=== PATIENT | male | born 1985 | race Two or more races ===

== ENCOUNTER 2021-05-09 11:07 | Emergency (ER) | payer SELFPAY ==
[~2021-05-09] VITALS: Ht 172.7 cm; Wt 99.8 kg
[2021-05-09] MEDS ORDERED: LIDOCAINE 1% HCL (LOCAL ANESTH.) INJ 20ML MDV ONE (11:55)
[2021-05-09 11:59] VITALS: BP 118/78
[2021-05-09] MEDS ORDERED: CEPH-509 PO (13:10)
[2021-05-09] MEDS ORDERED: IBUP800T27 PO (13:10)
[2021-05-09 15:16] LABS: Hepatitis B Surface Antibody Positive (Negative)
== END 2021-05-09 14:14 | disposition home or self-care (01) ==
LOC: ER 11:07 → EDBD 11:07 → ER 14:10
DX: S52.501A Unspecified fracture of the lower end of right radius, initial encounter for closed fracture (principal); S52.614A Nondisplaced fracture of right ulna styloid process, initial encounter for closed fracture; S61.011A Laceration without foreign body of right thumb without damage to nail, initial encounter; V43.52XA Car driver injured in collision with other type car in traffic accident, initial encounter; Y93.89 Activity, other specified; Y92.410 Unspecified street and highway as the place of occurrence of the external cause; Y99.8 Other external cause status
CPT/HCPCS: 12002; 36415; 73130; 86703; 86706; 86803; 87340; 99284; J2001

== ENCOUNTER 2021-12-11 17:34 | Inpatient (IN) | payer SELFPAY ==
[~2021-12-11] VITALS: Ht 175.3 cm; Wt 115.1 kg
[~2021-12-11 17:34] MED LIST: CEPH-509 PO; IBUP800T27 PO
[2021-12-11 19:23] LABS: Basophils # (auto) 0.1 10 ^3/uL (0-0.2); Eosinophils # (auto) 0.1 10 ^3/uL (0-0.8); Hematocrit 37.7 % (41.0-53.0); Hemoglobin 12.7 g/dL (13.5-17.5); Lymphocytes # (auto) 1.9 10 ^3/uL (0.4-5.4); Mean Corpuscular Hemoglobin 36.3 pg (28.0-32.0); Mean Corpuscular Hgb Conc. 33.7 g/dL (32.0-36.0); Monocytes # (auto) 0.9 10 ^3/uL (0-1.3)
[2021-12-11 19:25] LABS: Basophils % (auto) 1.4 % (0.0-2.0); Eosinophils % (auto) 1.4 % (0.0-7.0); Lymphocytes % (auto) 23.1 % (10.0-50.0); Mean Corpuscular Volume 107.8 fL (80.0-100.0); Monocytes % (auto) 11.6 % (0.0-12.0); Neutrophils # (auto) 5.1 10 ^3/uL (1.6-8.6); Neutrophils % (auto) 62.5 % (37.0-80.0); Nucleated Red Blood Cells % 0.1 %; Red Cell Distribution Width 15.3 % (11.8-14.3); White Blood Cell 8.2 10^3/uL (4.4-10.8)
[2021-12-11 19:40] LABS: INR 1.44 (0.9-1.15); Partial Thromboplastin Time 38.9 sec (24.6-33.4)
[2021-12-11 19:51] LABS: Albumin 3.2 g/dL (3.4-5.0); Calcium 8.1 mg/dL (8.5-10.1); Potassium 3.4 mmol/L (3.5-5.1)
[2021-12-11 19:55] LABS: BUN/Creatinine Ratio 2.3; Bilirubin, Total 7.8 mg/dL (0.2-1.0); Total Protein 8.7 g/dL (6.4-8.2)
[2021-12-11] MEDS ORDERED: SODIUM CHLORIDE 0.9% 500 ML IV ONE (20:15)
[2021-12-11] MEDS ORDERED: MORPHINE SULFATE INJ 2 MG/ml SYRG IV PRN (21:00)
[2021-12-11] MEDS ORDERED: ONDANSETRON HCL 4 MG/2 ML VIAL IV PRN (21:00)
[2021-12-11] MEDS ORDERED: NITROGLYCERIN 0.4 MG SL TAB SL PRN (21:00)
[2021-12-11] MEDS ORDERED: LORazepam 2MG/ML-1ML VIAL IV PRN (21:15)
[2021-12-11] MEDS: FOLIC ACID 1 MG, MULTIPLE VITAMIN 10 ML, MAGNESIUM SULF SDV 50% 8 MEQ, THIAMINE INJ 100... INJ SCH ×5 (22:17)
[2021-12-11] MEDS ORDERED: POTASSIUM CHL 20 Meq TABLET PO ONE (23:00)
[2021-12-12] VITALS (7 sets, daily range): BP systolic 114–152; BP diastolic 60–90
[2021-12-12 07:28] LABS: Basophils # (auto) 0.1 10 ^3/uL (0-0.2); Eosinophils # (auto) 0.1 10 ^3/uL (0-0.8); Eosinophils % (auto) 1.8 % (0.0-7.0); Hematocrit 35.3 % (41.0-53.0); Hemoglobin 11.9 g/dL (13.5-17.5); Lymphocytes # (auto) 1.5 10 ^3/uL (0.4-5.4); Lymphocytes % (auto) 20.4 % (10.0-50.0); Mean Corpuscular Hemoglobin 36.7 pg (28.0-32.0); Mean Corpuscular Hgb Conc. 33.8 g/dL (32.0-36.0); Mean Corpuscular Volume 108.6 fL (80.0-100.0); Monocytes # (auto) 0.8 10 ^3/uL (0-1.3); Monocytes % (auto) 10.8 % (0.0-12.0); Neutrophils # (auto) 4.9 10 ^3/uL (1.6-8.6); Nucleated Red Blood Cells % 0.1 %; Red Blood Cells 3.25 10^6/uL (4.5-5.90); Red Cell Distribution Width 15.8 % (11.8-14.3); White Blood Cell 7.5 10^3/uL (4.4-10.8)
[2021-12-12 07:48] LABS: Albumin 2.8 g/dL (3.4-5.0); BUN/Creatinine Ratio 4.8; Calcium 7.4 mg/dL (8.5-10.1); Potassium 3.7 mmol/L (3.5-5.1)
[2021-12-12 07:51] LABS: Total Protein 7.5 g/dL (6.4-8.2)
[2021-12-12] MEDS ORDERED: LACTULOSE 20Gm/30ML SOLN PO SCH ×2 (10:00→14:00)
[2021-12-12] MEDS ORDERED: FOLIC ACID 1 MG, MULTIPLE VITAMIN 10 ML, MAGNESIUM SULF SDV 50% 8 MEQ, THIAMINE INJ 100... INJ ONE ×5 (10:30)
[2021-12-12] MEDS ORDERED: chlordiazePOXIDE HCL 25 MG CAP PO PRN (10:30)
[2021-12-12] MEDS: FOLIC ACID 1 MG, MULTIPLE VITAMIN 10 ML, MAGNESIUM SULF SDV 50% 8 MEQ, THIAMINE INJ 100... INJ SCH ×5 (12:06)
[2021-12-12] MEDS: LACTULOSE 20Gm/30ML SOLN PO SCH ×2 (14:36→20:33)
[2021-12-13] MEDS: LACTULOSE 20Gm/30ML SOLN PO SCH ×5 (04:58→23:43)
[2021-12-13 05:00] VITALS: BP 156/85
[2021-12-13 06:02] LABS: Basophils # (auto) 0.1 10 ^3/uL (0-0.2); Eosinophils # (auto) 0.1 10 ^3/uL (0-0.8); Eosinophils % (auto) 1.7 % (0.0-7.0); Hematocrit 34.6 % (41.0-53.0); Hemoglobin 11.8 g/dL (13.5-17.5); Lymphocytes # (auto) 1.2 10 ^3/uL (0.4-5.4); Lymphocytes % (auto) 17.1 % (10.0-50.0); Mean Corpuscular Hgb Conc. 34.2 g/dL (32.0-36.0); Mean Corpuscular Volume 108.1 fL (80.0-100.0); Monocytes # (auto) 0.9 10 ^3/uL (0-1.3); Monocytes % (auto) 12.9 % (0.0-12.0); Neutrophils # (auto) 4.6 10 ^3/uL (1.6-8.6); Neutrophils % (auto) 67.3 % (37.0-80.0); Nucleated Red Blood Cells % 0.1 %; Red Cell Distribution Width 15.2 % (11.8-14.3); White Blood Cell 6.8 10^3/uL (4.4-10.8)
[2021-12-13 06:19] LABS: Albumin 2.7 g/dL (3.4-5.0); Calcium 7.9 mg/dL (8.5-10.1); Potassium 3.7 mmol/L (3.5-5.1)
[2021-12-13 06:23] LABS: Bilirubin, Total 10.6 mg/dL (0.2-1.0); Total Protein 6.9 g/dL (6.4-8.2)
[2021-12-13 08:00] VITALS: BP 119/69
[2021-12-13 09:06] VITALS: BP 139/91
[2021-12-13 13:20] VITALS: BP 124/63
[2021-12-13] MEDS: THIAMINE HCL 100 MG TAB PO SCH (13:53)
[2021-12-13] MEDS: FOLIC ACID 1 MG, MULTIPLE VITAMIN 10 ML, MAGNESIUM SULF SDV 50% 8 MEQ, THIAMINE INJ 100... INJ SCH ×5 (15:00)
[2021-12-13 17:07] VITALS: BP 142/82
[2021-12-13] MEDS: chlordiazePOXIDE HCL 25 MG CAP PO SCH ×2 (19:47→23:43)
[2021-12-13 22:00] VITALS: BP 138/90
[2021-12-14] MEDS ORDERED: IBUPROFEN 600 MG TAB PO ONE (00:30)
[2021-12-14] MEDS: LACTULOSE 20Gm/30ML SOLN PO SCH ×3 (03:58→12:00)
[2021-12-14 05:00] VITALS: BP 151/93
[2021-12-14 05:52] LABS: Basophils # (auto) 0.1 10 ^3/uL (0-0.2)
[2021-12-14 05:57] LABS: Basophils % (auto) 0.9 % (0.0-2.0); Eosinophils # (auto) 0.2 10 ^3/uL (0-0.8); Eosinophils % (auto) 2.2 % (0.0-7.0); Hematocrit 33.2 % (41.0-53.0); Hemoglobin 11.4 g/dL (13.5-17.5); Lymphocytes # (auto) 1.5 10 ^3/uL (0.4-5.4); Lymphocytes % (auto) 20.1 % (10.0-50.0); Mean Corpuscular Hemoglobin 37.3 pg (28.0-32.0); Mean Corpuscular Hgb Conc. 34.3 g/dL (32.0-36.0); Mean Corpuscular Volume 108.5 fL (80.0-100.0); Monocytes % (auto) 13.4 % (0.0-12.0); Neutrophils # (auto) 4.7 10 ^3/uL (1.6-8.6); Neutrophils % (auto) 63.4 % (37.0-80.0); Red Blood Cells 3.06 10^6/uL (4.5-5.90); Red Cell Distribution Width 15.4 % (11.8-14.3); White Blood Cell 7.4 10^3/uL (4.4-10.8)
[2021-12-14 06:13] LABS: Calcium 8.1 mg/dL (8.5-10.1); Potassium 3.6 mmol/L (3.5-5.1)
[2021-12-14 06:16] LABS: Albumin 2.7 g/dL (3.4-5.0)
[2021-12-14] MEDS: chlordiazePOXIDE HCL 25 MG CAP PO SCH ×2 (06:17→12:00)
[2021-12-14] MEDS: THIAMINE HCL 100 MG TAB PO SCH (08:25)
[2021-12-14 08:35] VITALS: BP 134/89
[2021-12-14] MEDS ORDERED: LACT10PA2 PO (11:30)
[2021-12-14] MEDS ORDERED: CHL10C PO (11:30)
[2021-12-14] MEDS ORDERED: THIA100T10 PO (11:30)
[2021-12-14] MEDS: FOLIC ACID 1 MG, MULTIPLE VITAMIN 10 ML, MAGNESIUM SULF SDV 50% 8 MEQ, THIAMINE INJ 100... INJ SCH ×5 (12:00)
[2021-12-14 12:45] VITALS: BP 124/77
== END 2021-12-14 14:45 | disposition home or self-care (01) | DRG 813 ==
LOC: ER 17:38 → TELE 20:56 → TELE-EAST 12-12 04:30
PROVIDERS: ADMIT Nurse Practitioner Family; ATTEND Nurse Practitioner Acute Care
DX: D69.6 Thrombocytopenia, unspecified (principal); K72.00 Acute and subacute hepatic failure without coma; F10.20 Alcohol dependence, uncomplicated; E66.9 Obesity, unspecified; K70.30 Alcoholic cirrhosis of liver without ascites; Z20.822 Contact with and (suspected) exposure to COVID-19; K76.0 Fatty (change of) liver, not elsewhere classified; Z82.49 Family history of ischemic heart disease and other diseases of the circulatory system; Z83.3 Family history of diabetes mellitus
CPT/HCPCS: 36415; 74176; 80053; 82140; 85025; 85610; 85730; 86850; 86900; 86901; 96361; 96365; G0378

== ENCOUNTER 2022-01-06 19:13 | Inpatient (IN) | payer MEDICAID ==
[~2022-01-06] VITALS: Ht 177.8 cm; Wt 113.0 kg
[~2022-01-06 19:13] MED LIST changes: +CHL10C PO; +LACT10PA2 PO; +THIA100T10 PO
[2022-01-06 20:29] LABS: Hemoglobin 8.2 g/dL (13.5-17.5); Mean Corpuscular Hemoglobin 38.7 pg (28.0-32.0); Mean Corpuscular Volume 114.4 fL (80.0-100.0)
[2022-01-06 20:31] LABS: Hematocrit 24.1 % (41.0-53.0); Mean Corpuscular Hgb Conc. 33.9 g/dL (32.0-36.0); Red Blood Cells 2.11 10^6/uL (4.5-5.90); Red Cell Distribution Width 18.9 % (11.8-14.3); White Blood Cell 19.7 10^3/uL (4.4-10.8)
[2022-01-06 20:42] LABS: Basophils % (manual) 0 (0.0-2.0); Blast Cells 0; Eosinophils % (manual) 0 (0-7); Myelocytes % 0; Promyelocytes % 0; Reactive Lymphocytes 0
[2022-01-06] MEDS ORDERED: ONDANSETRON HCL 4 MG/2 ML VIAL IV ONE (21:00)
[2022-01-06] MEDS ORDERED: MORPHINE SULFATE 4 MG/ML SYR/VIAL IV ONE (21:00)
[2022-01-06 21:01] LABS: Albumin 1.3 g/dL (3.4-5.0); BUN/Creatinine Ratio 16.9; Calcium 7.4 mg/dL (8.5-10.1); Potassium 4.1 mmol/L (3.5-5.1)
[2022-01-06 21:04] LABS: Total Protein 4.5 g/dL (6.4-8.2)
[2022-01-06] MEDS ORDERED: PIPERACILLIN-TAZOB 3.375GM 100 ML IV ONE (21:15)
[2022-01-06 21:36] LABS: Bilirubin, Total 24.5 mg/dL (0.2-1.0)
[2022-01-06 22:11] LABS: Lactic Acid w/Reflex 9.7 mmol/L (0.4-2.0)
[2022-01-06 22:22] LABS: Band Neutrophils % (manual) 9; Lymphocytes % (manual) 7 (10.0-50.0); Metamyelocytes % 1; Monocytes % (manual) 4 (0-12)
[2022-01-06 23:02] LABS: Urine Amorphous Crystal FEW /hpf (None Seen); Urine Bacteria FEW /hpf (None Seen); Urine Blood TRACE /uL (Negative); Urine Hyaline Cast FEW /lpf (0 - 2); Urine Mucus FEW (None Seen); Urine Specific Gravity 1.013 (1.001-1.035); Urine WBC 4 /hpf (0 - 3)
[2022-01-06] MEDS ORDERED: SODIUM CHLORIDE 0.9% 500 ML IV ONE (23:15)
[2022-01-06] MEDS ORDERED: ONDANSETRON HCL 4 MG/2 ML VIAL IV PRN (23:15)
[2022-01-06] MEDS ORDERED: OCTREOTIDE ACETATE 100 MCG in SODIUM CHL 0.9% 50 ML IV ONE (23:15)
[2022-01-06] MEDS ORDERED: NITROGLYCERIN 0.4 MG SL TAB SL PRN (23:15)
[2022-01-06] MEDS ORDERED: SODIUM CHLORIDE 0.9% 1,000 ML IV SCH (23:15)
[2022-01-06] MEDS ORDERED: MORPHINE SULFATE INJ 2 MG/ml SYRG IV PRN (23:15)
[2022-01-06] MEDS ORDERED: PANTOPRAZOLE 80 MG in SODIUM CHL 0.9% 100 ML IV ONE (23:15)
[2022-01-06 23:45] LABS: Alcohol, Urine < 3.0 mg/dL (0-10); Amphetamine Screen, Urine NEGATIVE (NEGATIVE); Barbiturate Scree,Urine NEGATIVE (NEGATIVE); Benzodiazephine Screen, Urine POSITIVE (NEGATIVE); Cannabinoid Screen, Urine NEGATIVE (NEGATIVE); Cocaine Screen, Urine NEGATIVE (NEGATIVE); Opiate Scree,Urine NEGATIVE (NEGATIVE); Phencyclidine Screen, Urine NEGATIVE (NEGATIVE)
[2022-01-06 23:47] LABS: INR 2.65 (0.9-1.15); Partial Thromboplastin Time 65.8 sec (24.6-33.4)
[2022-01-07] VITALS (72 sets, daily range): BP systolic 40–141; BP diastolic 10–117
[2022-01-07] MEDS ORDERED: LACTULOSE 20Gm/30ML SOLN ONE ×2 (01:23→01:29)
[2022-01-07] MEDS: PANTOPRAZOLE 40mg/50ML NS AE 50 ML IV SCH ×5 (01:53→17:48)
[2022-01-07] MEDS ORDERED: VANCOMYCIN 1GM/250ML 250 ML IV ONE (02:00)
[2022-01-07] MEDS ORDERED: OCTREOTIDE ACETATE 100 MCG/ML VL ONE ×2 (02:34→03:25)
[2022-01-07] MEDS ORDERED: PANTOPRAZOLE 40mg/50ML NS AE 100 ML IV ONE (03:22)
[2022-01-07] MEDS ORDERED: ETOMIDATE (2MG/ML) 20ML VIAL IV ONE ×3 (03:34→03:50)
[2022-01-07] MEDS ORDERED: SUCCINYLCHOLINE CHLORIDE 20 MG/ML 10ML VIAL IV ONE ×3 (03:35→03:51)
[2022-01-07] MEDS: OCTREOTIDE ACETATE 500 MCG in SODIUM CHL 0.9% 99 ML IV SCH ×2 (03:45→12:28)
[2022-01-07] MEDS: NOREPINEPHRINE 8 MG/250ML KIT 250 ML IV SCH ×2 (03:50→12:44)
[2022-01-07] MEDS ORDERED: NOREPINEPHRINE 8 MG/250ML KIT 250 ML IV ONE (03:54)
[2022-01-07] MEDS: MIDAZOLAM DRIP 50 mg/50mL 50 ML IV SCH ×3 (04:00→15:43)
[2022-01-07] MEDS ORDERED: MIDAZOLAM DRIP 50 mg/50mL 50 ML IV ONE (04:16)
[2022-01-07 04:44] LABS: White Blood Cell 23.6 10^3/uL (4.4-10.8)
[2022-01-07 05:05] LABS: Albumin 1.2 g/dL (3.4-5.0); BUN/Creatinine Ratio 15.5; Calcium 6.8 mg/dL (8.5-10.1); Potassium 5.4 mmol/L (3.5-5.1)
[2022-01-07 05:13] LABS: Hematocrit 24.2 % (41.0-53.0); Mean Corpuscular Hgb Conc. 33.2 g/dL (32.0-36.0); Mean Corpuscular Volume 114.5 fL (80.0-100.0); Red Blood Cells 2.12 10^6/uL (4.5-5.90)
[2022-01-07 05:14] LABS: Red Cell Distribution Width 20.4 % (11.8-14.3)
[2022-01-07 05:15] LABS: Basophils % (manual) 0 (0.0-2.0); Blast Cells 0; Promyelocytes % 0; Reactive Lymphocytes 0
[2022-01-07 05:23] LABS: Bilirubin, Total 23.3 mg/dL (0.2-1.0); Total Protein 4.1 g/dL (6.4-8.2)
[2022-01-07] MEDS ORDERED: VASOPRESSIN 20 UNIT/ML ONE (05:40)
[2022-01-07] MEDS ORDERED: VASOPRESSIN 50 UNITS in D5W 5% 247.5 ML IV SCH (05:45)
[2022-01-07] MEDS: LACTULOSE 10g/15ml SOLN 473ML PR SCH ×4 (06:00→18:04)
[2022-01-07 06:09] LABS: Phosphorus 8.8 mg/dL (2.5-4.90)
[2022-01-07] MEDS ORDERED: DEXTROSE 50% SYRINGE 50 ML IV ONE (06:15)
[2022-01-07 06:36] LABS: INR 3.3 (0.9-1.15); Partial Thromboplastin Time 81.1 sec (24.6-33.4)
[2022-01-07] MEDS: fentaNYL Drip 2500mCg/250mlNS 250 ML IV SCH ×2 (07:00→17:22)
[2022-01-07] MEDS ORDERED: SODIUM BICARBONATE 8.4 % INJ 50ML VIAL IV ONE ×4 (07:30→16:30)
[2022-01-07] MEDS ORDERED: DEXTROSE (50%) 50ML SYRG IV PRN (07:30)
[2022-01-07] MEDS ORDERED: DEXTROSE (50%) 50ML SYRG IV ONE ×2 (07:30→18:15)
[2022-01-07] MEDS ORDERED: SODIUM BICARBONATE 50ML VIAL 100 ML in SOD CHL 0.45% 1,000 ML IV SCH (07:30)
[2022-01-07] MEDS: PIPERACILLIN-TAZOB 2.25GM 50 ML IV SCH ×2 (07:30→13:18)
[2022-01-07 08:29] LABS: Band Neutrophils % (manual) 8; Lymphocytes % (manual) 12 (10.0-50.0)
[2022-01-07 08:30] LABS: Eosinophils % (manual) 1 (0-7); Metamyelocytes % 4; Monocytes % (manual) 3 (0-12); Myelocytes % 1
[2022-01-07] MEDS: PHENYLEPHRINE IV 250 ML IV SCH ×2 (09:09→16:09)
[2022-01-07] MEDS ORDERED: ROCURONIUM 10MG/ML 10ML VIAL IV ONE (10:30)
[2022-01-07] MEDS: EPINEPHrine HCL 250 ML IV SCH ×2 (11:00→12:19)
[2022-01-07] MEDS: ACCU-CHEK COMFORT CURVE STRIP VI SCH ×2 (11:30→17:10)
[2022-01-07] MEDS: InsuLIN REG 1unit/0.01ml Soln (100units/ml) SC SCH ×2 (11:30→17:00)
[2022-01-07] MEDS: DOPamine 1600MCG/ML D5W 250 ML IV SCH ×2 (13:11→15:46)
[2022-01-07] MEDS ORDERED: CALCIUM GLUC 1,000mg/50ml-NS 50 ML IV ONE ×3 (16:20→18:15)
[2022-01-07 16:59] LABS: Basophils # (auto) 0.1 10 ^3/uL (0-0.2); Basophils % (auto) 0.4 % (0.0-2.0); Eosinophils # (auto) 0.2 10 ^3/uL (0-0.8); Eosinophils % (auto) 0.8 % (0.0-7.0); Hematocrit 21.9 % (41.0-53.0); Hemoglobin 7.1 g/dL (13.5-17.5); Lymphocytes # (auto) 2.3 10 ^3/uL (0.4-5.4); Lymphocytes % (auto) 10.3 % (10.0-50.0); Mean Corpuscular Hemoglobin 36.1 pg (28.0-32.0); Mean Corpuscular Hgb Conc. 32.3 g/dL (32.0-36.0); Mean Corpuscular Volume 111.9 fL (80.0-100.0); Monocytes # (auto) 1.4 10 ^3/uL (0-1.3); Monocytes % (auto) 6.1 % (0.0-12.0); Neutrophils # (auto) 18.2 10 ^3/uL (1.6-8.6); Neutrophils % (auto) 82.4 % (37.0-80.0); Nucleated Red Blood Cells % 0.7 %; Red Blood Cells 1.96 10^6/uL (4.5-5.90); Red Cell Distribution Width 22.8 % (11.8-14.3); White Blood Cell 22.1 10^3/uL (4.4-10.8)
[2022-01-07 17:23] LABS: Albumin 1.2 g/dL (3.4-5.0); BUN/Creatinine Ratio 13.5; Calcium 6.4 mg/dL (8.5-10.1)
[2022-01-07 17:32] LABS: Bilirubin, Total 20.7 mg/dL (0.2-1.0)
[2022-01-07 18:05] LABS: Potassium 7.2 mmol/L (3.5-5.1)
[2022-01-07] MEDS ORDERED: ALBUTEROL SULF 2.5 MG/0.5ML(0.5%) NEB SOLN NEB ONE (18:15)
[2022-01-07] MEDS ORDERED: FUROSEMIDE 20 MG/2 ML VIAL IV ONE (18:15)
[2022-01-07] MEDS ORDERED: InsuLIN REG 1unit/0.01ml Soln (100units/ml) IV ONE (18:15)
[2022-01-07] MEDS ORDERED: SODIUM BICARBONATE 8.4% INJ 50ML SYRINGE IV ONE (18:15)
== END 2022-01-07 18:53 | DRG 720 ==
LOC: EDBD 19:13 → ER 19:13 → EDUNIT# 19:13 → TELE 23:23 → DOU IN ICU 01-07 03:04 → ICU CENTRL 01-07 03:24 → ICU WEST 01-07 04:26
PROVIDERS: ADMIT Nurse Practitioner; ATTEND Family Medicine
PROC: 06HY33Z Insertion of Infusion Device into Lower Vein, Percutaneous Approach (ICD-10-PCS; 2022-01-06)
PROC: B54CZZA Ultrasonography of Left Lower Extremity Veins, Guidance (ICD-10-PCS; 2022-01-06)
PROC: 30233K1 Transfusion of Nonautologous Frozen Plasma into Peripheral Vein, Percutaneous Approach (ICD-10-PCS; principal; 2022-01-07)
PROC: 30233N1 Transfusion of Nonautologous Red Blood Cells into Peripheral Vein, Percutaneous Approach (ICD-10-PCS; 2022-01-07)
PROC: 30233R1 Transfusion of Nonautologous Platelets into Peripheral Vein, Percutaneous Approach (ICD-10-PCS; 2022-01-07)
PROC: 0BH17EZ Insertion of Endotracheal Airway into Trachea, Via Natural or Artificial Opening (ICD-10-PCS; 2022-01-07)
PROC: 5A1935Z Respiratory Ventilation, Less than 24 Consecutive Hours (ICD-10-PCS; 2022-01-07)
PROC: 5A12012 Performance of Cardiac Output, Single, Manual (ICD-10-PCS; 2022-01-07)
DX: A41.9 Sepsis, unspecified organism (principal); J96.01 Acute respiratory failure with hypoxia; J69.0 Pneumonitis due to inhalation of food and vomit; I85.10 Secondary esophageal varices without bleeding; N17.9 Acute kidney failure, unspecified; D68.9 Coagulation defect, unspecified; D69.6 Thrombocytopenia, unspecified; K70.31 Alcoholic cirrhosis of liver with ascites; J98.11 Atelectasis; K76.82 Hepatic encephalopathy; D64.9 Anemia, unspecified; Z20.822 Contact with and (suspected) exposure to COVID-19; K40.20 Bilateral inguinal hernia, without obstruction or gangrene, not specified as recurrent; R04.0 Epistaxis; I86.4 Gastric varices; F10.20 Alcohol dependence, uncomplicated; Y90.9 Presence of alcohol in blood, level not specified; Z79.899 Other long term (current) drug therapy; Z79.1 Long term (current) use of non-steroidal anti-inflammatories (NSAID); Z82.49 Family history of ischemic heart disease and other diseases of the circulatory system; Z83.3 Family history of diabetes mellitus
CPT/HCPCS: 36415; 36600; 70450; 71045; 71250; 74176; 76700; 80053; 80307; 80320; 81001; 82140; 82270; 82805; 82962; 83605; 83735; 84100; 85007; 85025; 85027; 85610; 85730; 86850; 86900; 86901; 86920; 87040; 87070; 87077; 87081; 87086; 87186; 87205; 87426; 93005; 94002; 94003; 96365; 96367; 96375; 99291; C9113; G0378; J0171; J0330; J2250; J2405; J2543; J7060